=== PATIENT | male | born 2000 | race Caucasian/White ===

== ENCOUNTER 2020-12-26 23:45 | Emergency (ER) | payer SELFPAY ==
[~2020-12-26] VITALS: Ht 162.6 cm; Wt 69.0 kg
[2020-12-27] MEDS ORDERED: LORAZEPAM 2MG/ML CPJ IV ONE (00:15)
[2020-12-27] MEDS ORDERED: SODIUM CHLORIDE 0.9% 1,000 ML IV ONE (00:15)
[2020-12-27 00:28] LABS: BASOPHILS % 0.3 % (0.0-2.0); EOSINOPHILS % 2.5 % (0.0-5.0); HEMOGLOBIN. 14.9 g/dL (14.0-18.0); LYMPHOCYTES % 13.3 % (20.0-50.0); MEAN CORPUSCULAR HEMOGLOBIN 29.8 pg (28.0-32.0); MEAN CORPUSCULAR VOLUME 83.9 fL (80.0-94.0); MEAN PLATELET VOLUME 7.4 fl (7.4-10.4); MONOCYTES % 6.8 % (2.0-8.0); NEUTROPHILS % 77.1 % (40.0-76.0); PLATELET 304 x1000/uL (130-400); RED CELL DISTRIBUTION WIDTH 13.9 % (11.6-14.6)
[2020-12-27 00:33] LABS: CLARITY URINE CLEAR (CLEAR); COLOR URINE YELLOW (YELLOW); KETONES URINE NEGATIVE (NEGATIVE); LEUKOCYTE ESTERASE URINE NEGATIVE (NEGATIVE); NITRITE URINE NEGATIVE (NEGATIVE); OCCULT BLOOD URINE NEGATIVE (NEGATIVE); PH URINE 6.5 (4.5-8.0); PROTEIN URINE NEGATIVE (NEGATIVE); SPECIFIC GRAVITY URINE 1.015 (1.005-1.030)
[2020-12-27 00:42] LABS: CHLORIDE 103 mEq/L (98-107)
[2020-12-27 00:49] LABS: ETHANOL BLOOD < 10 mg/dL
[2020-12-27 00:52] LABS: CREATINE KINASE 152 IU/L (39-308)
[2020-12-27 01:00] LABS: *AMPHETAMINES SCREEN URINE NEGATIVE (NEGATIVE); *BARBITURATES SCREEN URINE NEGATIVE (NEGATIVE); *BENZODIAZEPINES SCREEN URINE NEGATIVE (NEGATIVE); *COCAINE SCREEN URINE NEGATIVE (NEGATIVE)
[2020-12-27 01:01] LABS: CANNABINOID URINE SCREEN PRESUMTIVE POSITIVE (NEGATIVE); METHADONE URINE SCREEN NEGATIVE (NEGATIVE); OPIATES URINE SCREEN NEGATIVE (NEGATIVE); PHENCYCLIDINE URINE SCREEN NEGATIVE (NEGATIVE)
[2020-12-27] MEDS ORDERED: POTASSIUM CHLORIDE 20MEQ TABLET SR PO ONE (02:15)
[2020-12-27] MEDS ORDERED: IBUPROFEN 600MG TABLET PO ONE (05:45)
[2020-12-27 06:14] VITALS: BP 94/66
== END 2020-12-27 06:30 | disposition home or self-care (01) ==
LOC: ER 23:45
DX: F12.129 Cannabis abuse with intoxication, unspecified (principal); R51.9 Headache, unspecified
CPT/HCPCS: 36415; 71045; 80053; 80305; 80307; 80320; 80329; 81003; 82550; 82962; 85025; 93005; 96361; 96374; 99285; J2060; J7030; G0480